=== PATIENT | male | born 1935 | race Caucasian/White ===

== ENCOUNTER 2022-09-26 15:50 | Emergency (ER) | payer MEDICARE, BC ==
[2022-09-26] MEDS ORDERED: Lidocaine 1% 10 ML MDV INJECT ONE (16:08)
== END 2022-09-26 17:00 | disposition home or self-care (01) ==
LOC: JD.ED 15:50
DX: S61.210A Laceration without foreign body of right index finger without damage to nail, initial encounter (principal); I10 Essential (primary) hypertension; Z86.16 Personal history of COVID-19; Z79.01 Long term (current) use of anticoagulants; Z87.891 Personal history of nicotine dependence; W26.8XXA Contact with other sharp object(s), not elsewhere classified, initial encounter
CPT/HCPCS: 12001; 99282; 99283; J3490

== ENCOUNTER 2023-03-20 09:29 | Emergency (ER) | payer MEDICARE, BC ==
[2023-03-20] MEDS ORDERED: Sodium Chloride 0.9% 10 ML Syringe FLUSH PRN (10:06)
[2023-03-20 10:27] LABS: BASOPHILS PERCENT AUTO 0.2 % (0.0-1.0); HEMATOCRIT 39.8 % (42.0-52.0); HEMOGLOBIN 13.2 gm/dl (14.0-18.0); IMMATURE GRAN ABSOLUTE AUTO 0.02 K/mm3 (0.00-0.05); IMMATURE GRAN PERCENT AUTO 0.1 % (0.0-0.4); LYMPHOCYTES ABSOLUTE AUTO 0.3 K/mm3 (1.0-4.8); MEAN CORPUSCULAR HEMOGLOBIN 31.1 pg (28.0-32.0); MEAN CORPUSCULAR HGB CONC 33.2 g/dl (32.0-36.0); MEAN CORPUSCULAR VOLUME 93.9 fl (83.0-99.0); MEAN PLATELET VOLUME 9.5 fl (9.4-12.4); MONOCYTES ABSOLUTE AUTO 0.1 K/mm3 (0.0-0.8); MONOCYTES PERCENT AUTO 0.7 % (0.0-8.0); NEUTROPHILS ABSOLUTE AUTO 14.8 K/mm3 (1.8-7.7); PLATELET COUNT,PLT 160 K/mm3 (150-400); RED BLOOD CELL COUNT 4.24 M/mm3 (4.52-5.90); WHITE BLOOD CELL COUNT,WBC 15.22 K/mm3 (3.9-11.3)
[2023-03-20 10:46] LABS: INR 1.18; PROTHROMBIN TIME 12.5 SECONDS (9.7-12.0)
[2023-03-20 10:54] LABS: ALBUMIN 3.6 g/dl (3.4-5.0); ANION GAP 15.5 (5-15); BILIRUBIN TOTAL 2.1 mg/dL (0.2-1.0); BUN/CREATININE RATIO 13.3 (14-18); CALCIUM 9.6 mg/dL (8.5-10.1); CREATININE 1.5 mg/dL (0.7-1.3); EST CRCL DRUG DOSING (CG) 28.5 mL/min; MAGNESIUM 2.2 mg/dL (1.8-2.4); POTASSIUM,K 3.5 mEq/L (3.5-5.1); PROTEIN TOTAL,TP 7.4 g/dl (6.4-8.2)
[2023-03-20 10:58] LABS: D-DIMER QUANTITATIVE 0.66 mg/L (0.19-0.50)
[2023-03-20 12:06] LABS: SLIDE REVIEW ABNORMAL SMEAR
[2023-03-20] MEDS ORDERED: Sodium Chloride 0.9% 1,000 ML IV SCH (12:30)
[2023-03-20] MEDS ORDERED: Sodium Chloride 0.9% 10 ML Syringe FLUSH ONE (13:03)
[2023-03-20] MEDS ORDERED: Iopamidol 612 MG/ML 100 ML Bottle IVPUSH ONE (13:03)
[2023-03-20] MEDS ORDERED: Piperacillin/Tazobactam 4.5 GM in Sodium Chloride 0.9% 100 ML IV ONE (14:06)
[2023-03-20 14:45] LABS: APPEARANCE,URINE CLEAR (Clear); BILIRUBIN,URINE NEGATIVE (Negative); COLOR,URINE YELLOW (Yellow); GLUCOSE,URINE NEGATIVE (Negative); KETONES,URINE NEGATIVE (Negative); LEUKOCYTE ESTERASE,URINE NEGATIVE (Negative); NITRITE,URINE NEGATIVE (Negative); OCCULT BLOOD,URINE TRACE-INTACT (Negative); PH,URINE 6.5 (5.0-8.0); PROTEIN,URINE 1+ (Negative)
[2023-03-20 14:56] LABS: BACTERIA,URINE FEW /hpf (FEW); MUCUS,URINE NOT SEEN /hpf (FEW); RBC,URINE 0-5 /hpf (0-5); SQUAMOUS EPITHELIAL CELLS,UR 0-5 /hpf (0-5); WBC,URINE 0-5 /hpf (0-5)
== END 2023-03-20 15:20 ==
LOC: JD.ED 09:29
DX: K80.50 Calculus of bile duct without cholangitis or cholecystitis without obstruction (principal); I10 Essential (primary) hypertension; E78.00 Pure hypercholesterolemia, unspecified; Z86.16 Personal history of COVID-19
CPT/HCPCS: 36415; 71045; 71260; 74177; 76705; 80053; 81001; 83735; 84484; 85025; 85379; 85610; 93005; 96361; 96365; 99285; J2543; J3490; J7030; Q9967; 93010; 99284